=== PATIENT | female | born 1980 | race Two or more races ===

== ENCOUNTER 2021-09-10 08:23 | Outpatient (CLI) | payer BC, SELFPAY ==
--- NOTE | ~2021-09-10 | US_ITS ---
EXAMINATION: US pelvic complete w TV EXAM DATE: 09/10/2021 09:09 INDICATION: N92.0 - Excessive and frequent menstruation with regular. TECHNIQUE: Pelvic transabdominal and transvaginal sonogram was performed. There are multiple graysca le and Doppler images available for interpretation. There is no prior study for comparison. FINDINGS: Uterus measures 11.1 x 6.1 x 5.6 cm, is retroverted and morphologically normal. Endometri al stripe measures 12 mm, within normal limits. There is no free pelvic fluid. Right adnexa: The ovary is not identified. There is no adnexal mass. Left adnexa: The ovary measures 2.3 x 1.8 x 2.3 cm and is morphologically normal. Ovarian vascular fl ow confirmed. IMPRESSION: 1. Unremarkable pelvic ultrasound exam. Reviewed, dictated and finalized at location B.
== END 2021-09-10 08:24 | disposition home or self-care (01) ==
LOC: ANHIMG 08:28
PROVIDERS: PCP Family Medicine; Visit Provider Obstetrics & Gynecology
DX: N92.0 Excessive and frequent menstruation with regular cycle (principal)
CPT/HCPCS: 76830; 76856

== ENCOUNTER 2021-09-16 10:41 | Outpatient (CLI) | payer BC, SELFPAY ==
[2021-09-16 11:42] LABS: Rapid Plasma Reagin Non-Reactive (NonReactive)
[2021-09-16 12:03] LABS: Hepatitis B Surface Antigen Negative (Negative)
[2021-09-16 12:14] LABS: HIV 1/2 Ab P24 Ag Result Negative (Negative)
[2021-09-16 12:20] LABS: Hepatitis C Virus Antibody Negative (Negative)
== END 2021-09-16 10:42 | disposition home or self-care (01) ==
LOC: ANHLAB 10:44
PROVIDERS: PCP Family Medicine; Visit Provider Obstetrics & Gynecology
DX: Z11.3 Encounter for screening for infections with a predominantly sexual mode of transmission (principal)
CPT/HCPCS: 36415; 86592; 86703; 86803; 87340; G0432

== ENCOUNTER 2023-04-21 01:56 | Day surgery (SDC) | payer BC, SELFPAY ==
--- NOTE | 2023-04-15 14:41 | PC.NURSE ---
Report to the Outpatient Waiting Room, entrance under the green pavilion located off [facility], at time _0730__ on date _04/21/23__. Planned Procedure Time: _0930__. Time changes happen often and if your time is changed the preop area will call you the afternoon before. - You and your visitor will be asked to self-screen and do not enter if you have any COVID symptoms. - A mask is optional within the hospital at this time. Patients may have clear liquids (water, carbonated beverages, clear teas, apple juice) until 3 hours prior to surgery with a maximum of 20 ounces. - No food from midnight until time of surgery - Infants may have breast milk until 4 hours before surgery, formula 6 hours prior to surgery. - Children will be allowed to drink immediately following surgery. If applicable, please bring a bottle or sippy cup to assist with drinking. Juice, water, soda, and popsicles are readily available. For infants on formula, please bring formula the day of surgery. Pacifiers are allowed. Take the following medications with a SIP of water the morning of surgery: DO NOT STOP ANY OF YOUR OTHER PRESCRIPTION MEDICATIONS PRIOR TO SURGERY ?EXCEPT THE FOLLOWING Medications to discontinue per physician _vitamins and supplements 3 days prior_ Date to take last dose Please no make-up, nail egyptian, hairspray, perfume, deodorant, or body powder the day of surgery. No jewelry (including any body piercings) or valuables the day of surgery, leave them at home. Please take a shower or bath the night before, or the morning of, surgery with an antibacterial soap. Wear comfortable, loose fitting clothing. Children are encouraged to wear pajamas. - Jewelry must be removed prior to entering the operating room. Rings and piercings that are not removed may be cut off. - The hospital will not accept responsibility for valuables. - Please leave all valuables, including medications, at home the day of surgery. If you are going home after surgery, a licensed entry level truck driver must drive you home. - NO public transportation without another adult if you receive anesthesia. - We recommend that an adult stay with you for 24 hours following discharge. - We also recommend that you do not drive, make important decision, drink alcoholic beverages, or take any drugs that were not prescribed by your health care provider for at least 24 hours after your discharge time. For Pediatric surgeries, we recommend two adults accompany the child home. Follow any additional instructions given to you from your surgeon. If you or anyone in your household have experienced Covid symptoms in the past week, please notify your surgeon or the nurse liaison at the phone number below for possible testing. Telephone instructions given to _Chuyo__and asked if any additional questions and then verbalized understanding. Patient advised to call surgeon office or pre surgery nurse liaison [phone] if any additional questions.
[2023-04-15 14:46] VITALS: BMI 36.1
--- NOTE | 2023-04-20 15:58 | PM.IMHP ---
H&P: HPI History of Present Illness Date/Time: 04/20/23 15:58 Chief Complaint: recurrent tonsillitis chronic tonsillitis Narrative: planned procedure Review of Systems Review of Systems: All systems reviewed & are unremarkable except as noted in HPI and below [facility] Past Medical History Medical History Anxiety Borderline diabetes Elective x3 HSV (herpes simplex virus) infection Migraine Surgical History Surgical History Previous section x1 Tubal ligation status Family History Family History Mother Diabetes mellitus Hypertension Depression Heart disease Anxiety Cerebrovascular accident Sibling Diabetes mellitus Hypertension Anxiety Depression Other History of thyroid disorder Social History Social History (Updated 02/25/23 @ 10:33 by ABBEY Iglesias) Social History: Single Smoking status: Never smoker Second hand tobacco smoke exposure: No Alcohol intake: current Drinks per week: 1 Alcohol use details: Occasionally Substance use: current Substance use type: marijuana Other substance usage details: randomally Lack of Transportation: No Lack of Food: Never True Current Housing: I Have Housing Concerned About Future Housing: No Difficulty Paying Gas/Electric Bills: No Difficulty Paying for Meds: No Currently Unemployed: No Education: High School Diploma/GED Difficulty w/ Childcare or Family Care: No Living arrangements: with family Occupation/Education: occupation Gender identity (if verbalized by the patient): Female Sexual Orientation (if Verbalized by the Patient): Straight or Heterosexual Spiritual care concerns: No Meds Home Medications and Allergies Home Medications Medication Instructions Recorded Confirmed Type No Home Medications 12/13/22 02/25/23 History Allergies Allergy/AdvReac Type Severity Reaction Status Date / Time amoxicillin Allergy Intermediate Hives Verified 04/15/23 14:27 Penicillins Allergy Intermediate Hives Verified 04/15/23 14:27 metronidazole Allergy Unknown Rash, Verified 04/15/23 14:27 swelling fluconazole [From Diflucan] Allergy Rash, skin Verified 04/15/23 14:27 irritation Exam Narrative: chronic appearing tonsils Assessment and Plan Assessment and plan (1) Recurrent tonsillitis: Code(s): J03.91 - Acute recurrent tonsillitis, unspecified Status: Acute Assessment and Plan: ?plan operating room tonsillectomy.? Risks were discussed including bleeding infection 3-5% chance of postoperative bleeding numbness change in taste change in swallow need for further procedures failure to resolve symptoms need for time off work need for time off school need for narcotic use and the inherent risks of using narcotics.? Patient voiced understanding of these risks and agreed. (2) History of strep sore throat: Code(s): Z87.09 - Personal history of other diseases of the respiratory system Status: Acute
[2023-04-21] VITALS (9 sets, daily range): BP systolic 112–150; BP diastolic 72–93; PULSE 62–114; RESP 14–18; TEMP 36.6; O2SAT 95–100
--- NOTE | 2023-04-21 07:20 | WPDHPUPDATE1 ---
History and Physical Update Update Date/Time: 04/21/23 07:20 History and Physical has been reviewed, including an updated exam of the patient. There are NO changes in the patient's condition. Risks, benefits, and alternatives have been discussed and questions answered. Patient agrees to proceed with procedure.
[2023-04-21] MEDS: ACETAMINOPHEN 500 MG TABLET 1000 MG PO (08:10)
[2023-04-21] MEDS: LACTATED RINGERS 1,000 ML 30 ML IV CONT ×2 (08:10→10:49)
[2023-04-21] MEDS: SCOPOLAMINE 1.5 MG PATCH TRANSDERM (08:10)
[2023-04-21 08:40] LABS: Serum Qual hCG Negative
[2023-04-21 08:41] LABS: SPREG INTERNAL CONTROL Positive
--- NOTE | 2023-04-21 08:48 | WPDANESEPPF ---
Anes - Initial Pre Proc Eval Procedure: Operation Date: 04/21/23 09:15 Proposed Procedures p Tonsillectomy - Robin Torres MD Date/Time: 04/21/23 08:48 Surgeon: Robin Torres MD Pre Op Diagnosis: chronic tonsilitis Patient Data Age: 43 Gender: F Height: 1.63 m Weight: 95.45 kg Allergies Allergy/AdvReac Type Severity Reaction Status Date / Time amoxicillin Allergy Intermediate Hives Verified 04/15/23 14:27 Penicillins Allergy Intermediate Hives Verified 04/15/23 14:27 metronidazole Allergy Unknown Rash, Verified 04/15/23 14:27 swelling fluconazole [From Diflucan] Allergy Rash, skin Verified 04/15/23 14:27 irritation Home Medications Medication Instructions Recorded Confirmed Type No Home Medications 12/13/22 02/25/23 History Laboratory Tests 04/21/23 08:23 Serum HCG, Qual Negative Patient hx anesthesia problems: post op nausea/vomiting Family hx anesthesia problems: none Results Review: All pre-operative results and documents have been reviewed as part of the pre-operative evaluation. [facility] Past Medical History Medical History Anxiety Borderline diabetes Elective x3 HSV (herpes simplex virus) infection Migraine Surgical History Surgical History Previous section x1 Tubal ligation status Family History Family History Mother Diabetes mellitus Hypertension Depression Heart disease Anxiety Cerebrovascular accident Sibling Diabetes mellitus Hypertension Anxiety Depression Other History of thyroid disorder Social History Social History Social History: Single Smoking status: Never smoker Second hand tobacco smoke exposure: No Alcohol intake: current Drinks per week: 1 Alcohol use details: Occasionally Substance use: current Substance use type: marijuana Other substance usage details: randomally Lack of Transportation: No Lack of Food: Never True Current Housing: I Have Housing Concerned About Future Housing: No Difficulty Paying Gas/Electric Bills: No Difficulty Paying for Meds: No Currently Unemployed: No Education: High School Diploma/GED Difficulty w/ Childcare or Family Care: No Living arrangements: with family Occupation/Education: occupation Gender identity (if verbalized by the patient): Female Sexual Orientation (if Verbalized by the Patient): Straight or Heterosexual Spiritual care concerns: No Anes - Eval Final PreProcedure Day of Procedure 04/21/23 08:48 Patient weight: obese Heart: regular rate and rhythm Lungs: clear to auscultation Airway: Mallampati scale class II Neurological: alert and oriented Last oral intake: >/= 8 hours ASA classification: III Emergent: no Anesthetic plan: proceed Anesthesia type and monitoring: general ETT and standard monitoring Results Review: All pre-operative results and documents have been reviewed as part of the pre-operative evaluation. Informed Consent: The patient's anesthetic plan and its attendant risks and benefits were discussed with the patient/family/POA. Questions were solicited and answers provided to the satisfaction of the patient/family/POA.
--- NOTE | 2023-04-21 10:06 | W.PM.PROC2 ---
Procedure Note - Detailed Date of Procedure 04/21/23 Pre-op Diagnosis chronic tonsilitis Post-op Diagnosis Same Procedure Performed Tonsillectomy Surgeon Robin Torres MD Anesthesia General Indications see above Findings large scarred in tonsils minimal bleeding Description of Procedure patient identified consent verified in the preoperative holding area. The patient was then brought to the operating room. Time-out was performed. General anesthesia was induced and endotracheal tube was secured the patient's airway. Patient prepped draped position procedure confirmed 2nd time-out performed. McIvor mouth gag inserted revealing tonsils described above. This was a bilateral procedure. They were removed in the extracapsular plane using Bovie electrocautery at a setting of 10. Any bleeding was controlled with Bovie suction electrocautery at a setting of 12. In between tonsils McIvor mouth gag was lowered to allow blood flow to return to the tongue. At the end of the procedure McIvor mouth gag was lowered and reopened 30 seconds later to reveal no further bleeding. McIvor mouth gag was then removed. I performed this bilateral procedure. No complications. Total blood loss about 2 cc. Care the patient was given Anesthesiology. No complications. Patient was taken to PACU. Estimated Blood Loss 2 Drains No Packing No Pathology Yes Complications No immediate complications Condition Stable Disposition PACU [facility] Billing Surgery - Charge Forward: Surgery Billing
[2023-04-21] MEDS: ONDANSETRON INJ 4 MG/2 ML VIAL IV PUSH (11:22)
[2023-04-21] MEDS: fentaNYL CITRATE INJ (*CRX) 100 MCG/2 ML VIAL 25 MCG IV PUSH (11:22)
[2023-04-21] MEDS: oxyCODONE HCL (*CRX) 5 MG TAB IR PO (11:43)
== END 2023-04-21 12:45 | disposition home or self-care (01) ==
PROVIDERS: Anesthesiology; PCP Family Medicine; Visit Provider Otolaryngology
PROC: (CPT 42826; principal; 2023-04-21 09:15)
DX: J35.01 Chronic tonsillitis (principal); F12.90 Cannabis use, unspecified, uncomplicated; E66.9 Obesity, unspecified; Z68.37 Body mass index [BMI] 37.0-37.9, adult; Z87.09 Personal history of other diseases of the respiratory system
CPT/HCPCS: 42826; 36415; 84703; 88302; A9270; J0330; J1100; J2250; J2270; J2405; J2704; J3010; J7120

== ENCOUNTER 2024-07-26 10:38 | Outpatient (CLI) | payer BC, SELFPAY ==
--- NOTE | ~2024-07-26 | XR_ITS ---
3 VIEWS LUMBAR SPINE Ordering provider: Ayla Horta MD History: . R20.0 - Anesthesia of skin . Comparison: None. FINDINGS: VERTEBRAL BODIES: No visible fracture or subluxation. DISK SPACES: Normal. SOFT TISSUES: Normal. IMPRESSION: No acute osseous abnormality lumbar spine. Reviewed, dictated and finalized at location A.
== END 2024-07-26 10:39 | disposition home or self-care (01) ==
PROVIDERS: PCP Family Medicine; Visit Provider Family Medicine
DX: R20.0 Anesthesia of skin (principal)
CPT/HCPCS: 72100

== ENCOUNTER 2024-09-28 14:11 | Outpatient (CLI) | payer BC, SELFPAY ==
[2024-09-28 14:47] LABS: Alanine Aminotransferase 147 U/L (6-35); Aspartate Amino Transferase 136 U/L (14-36)
[2024-09-30 02:54] LABS: FSH 89.4 mIU/mL
== END 2024-09-28 14:12 | disposition home or self-care (01) ==
LOC: ANHLAB 14:13
PROVIDERS: Student in an Organized Health Care Education/Training Program; PCP Family Medicine; Visit Provider Nurse Practitioner Obstetrics & Gynecology
DX: R79.89 Other specified abnormal findings of blood chemistry (principal); N91.2 Amenorrhea, unspecified; R23.2 Flushing
CPT/HCPCS: 36415; 82306; 82670; 83001; 84443; 84450; 84460

== ENCOUNTER 2024-10-06 15:57 | Outpatient (CLI) | payer BC, SELFPAY ==
--- NOTE | ~2024-10-06 | US_ITS ---
EXAMINATION: US abdomen limited DATE: 10/06/2024 16:28 INDICATION: Other specified abnormal findings of blood chemistry. TECHNIQUE: Multiple grayscale and Doppler ultrasound images of the abdomen were obtained. COMPARISON: None FINDINGS: The pancreatic head and body are normal in appearance. The pancreatic tail is not visualized. Liver has normal contour, with a smooth surface. There is increased parenchymal echogenicity and coarsened echotexture consistent with diffuse hepatic steatosis. No liver lesion identified. No intrahepatic b iliary duct dilation suspected. Portal venous flow was seen in the hepatopetal, normal direction and has normal Doppler waveform. The gallbladder is not distended which limits evaluation. There is a reg ion of Gerdy shadowing seen posteriorly from the anterior wall of the gallbladder which could represe nt pneumobilia however this does not appear to change position significantly when comparing the imagi ng the supine and left lateral decubitus position which suggests possibility of osteonecrosis with ei ther in the gallbladder wall or gallbladder sludge. No hypoechoic shadowing to suggest cholelithiasis . Differential would also include gas within a loop of bowel within the gallbladder fossa with nonvis ualized potentially decompressed gallbladder. The common bile duct measures 3 mm, which is normal. So nographic Wise sign was reported as negative by the end finder forming department. The visualized proximal to mid inf erior vena cava and aorta are normal. Visualized portion of the right kidney demonstrates normal cont our and axis tube with no hydronephrosis. IMPRESSION: 1. Indeterminate dirty acoustic shadowing arising from a fluid-filled structure at the gallbladder fo ssa. Differential would include pneumobilia, adenomyomatosis, atypically shadowing gallstones, choles terol crystals within gallbladder sludge or nonvisualized gallbladder with fluid and gas-filled loop of bowel at the gallbladder fossa. Would consider further evaluation with either MRI/MRCP or repeat u ltrasound with proper fasting. 2. Diffuse hepatic steatosis. Reviewed, dictated and finalized at location B. NEERING FACULTY MEMBER IMPRESSION: 1. Indeterminate dirty acoustic shadowing arising from a fluid-filled structure at the gallbladder fossa. Differential would include pneumobilia, adenomyomato sis, atypically shadowing gallstones, cholesterol crystals within gallbladder s ludge or nonvisualized gallbladder with fluid and gas-filled loop of bowel at t he gallbladder fossa. Would consider further evaluation with either MRI/MRCP or repeat ultrasound with proper fasting. 2. Diffuse hepatic steatosis.
== END 2024-10-06 15:58 | disposition home or self-care (01) ==
LOC: ANHIMG 15:58
PROVIDERS: PCP Family Medicine; Visit Provider Student in an Organized Health Care Education/Training Program
DX: R79.89 Other specified abnormal findings of blood chemistry (principal)
CPT/HCPCS: 76705

== ENCOUNTER 2025-03-07 08:12 | Outpatient (CLI) | payer BC, SELFPAY ==
--- NOTE | ~2025-03-07 | US_ITS ---
Pelvic ultrasound. Clinical History: Pelvic pain Technique: Realtime transabdominal and transvaginal scanning of the pelvis was performed. Color flow Doppler and Doppler spectral analysis were performed. Findings: The uterus is anteverted. The endometrial stripe has a thickness of 9 mm. No focal mass is identified. The right ovary measures 2.3 x 1.6 x 2.3 cm. No significant right ovarian or adnexal mass is seen. The left ovary measures 2.0 x 1.1 x 2.2 cm. No significant left ovarian or adnexal mass is seen. There is no evidence of free fluid in the cul de sac. Impression: Unremarkable pelvic ultrasound. Reviewed, dictated and finalized at location . Impression: Unremarkable pelvic ultrasound.
--- NOTE | ~2025-03-07 | US_ITS ---
US abdomen limited INDICATION: Fatty liver. PROCEDURE: Realtime right upper abdominal ultrasound. COMPARISON: Ultrasound dated 10/06/2024 FINDINGS: The pancreas is normal without focal mass or pancreatic ductal dilation. Liver echotexture is diffusely increased, consistent with fatty infiltration. There is an ill-defined hypoechoic mass of the liver measuring 4 x 3.7 x 3.6 cm with marginal vascularity. There is normal directional flow in the portal vein. There are gallstones. No gallbladder wall thickening. Common bile duct measures 4 mm. No sonographi c Wise's sign. IMPRESSION: 1: Fatty infiltrate trace of the liver. 4 cm hypoechoic mass with marginal vascularity. Recommend cor relation with CT or MRI without and with contrast for further characterization. 2: Gallstones. Reviewed, dictated and finalized at location A. IMPRESSION: 1: Fatty infiltrate trace of the liver. 4 cm hypoechoic mass with marginal vasc ularity. Recommend correlation with CT or MRI without and with contrast for fur ther characterization. 2: Gallstones.
== END 2025-03-07 08:13 | disposition home or self-care (01) ==
PROVIDERS: PCP Nurse Practitioner Obstetrics & Gynecology; Visit Provider Student in an Organized Health Care Education/Training Program
DX: R10.2 Pelvic and perineal pain (principal); R93.2 Abnormal findings on diagnostic imaging of liver and biliary tract; K76.0 Fatty (change of) liver, not elsewhere classified; K80.20 Calculus of gallbladder without cholecystitis without obstruction
CPT/HCPCS: 76705; 76830; 76856

== ENCOUNTER 2025-04-05 00:54 | Day surgery (SDC) | payer BC, SELFPAY ==
[2025-03-28 09:19] VITALS: BMI 38.2
--- NOTE | 2025-03-28 09:20 | PC.NURSE ---
Report to the Outpatient Waiting Room, entrance under the green pavilion located off [facility], at time _0800_ on date _[id number]_. Planned Procedure Time: _1000_.? Time changes happen often and if your time is changed the preop area will call you the afternoon before. - You and your visitor will be asked to self-screen and do not enter if you have any COVID symptoms. Please call surgeon if you need to reschedule. - A mask is optional within the hospital at this time. Patients may have clear liquids (water, carbonated beverages, clear teas, apple juice) until 3 hours prior to surgery with a maximum of 20 ounces. - No food from midnight until time of surgery and no smoking, or chewing tobacco (or any form of nicotine). No chewing gum, candy or mints. Take only the following medications with a SIP of water on the morning of surgery: __Flonase DO NOT STOP ANY OF YOUR OTHER PRESCRIPTION MEDICATIONS PRIOR TO SURGERY EXCEPT THE FOLLOWING Hold all vitamins and supplements for 3 days per anesthesiologist. Medications to discontinue per physician Date to take last vhyx__[id number]____ Please no make-up, nail english, hairspray, perfume, deodorant, or body powder the day of surgery.? No jewelry (including any body piercings) or valuables the day of surgery, leave them at home.? Please take a shower or bath the night before, or the morning of, surgery with an antibacterial soap.? Wear comfortable, loose fitting clothing.? - Jewelry must be removed prior to entering the operating room.? Rings and piercings that are not removed may be cut off. - The hospital will not accept responsibility for valuables.? - Please leave all valuables, including medications, at home the day of surgery. If you are going home after surgery, a licensed dairy truck driver must drive you home.? - NO public transportation without another adult if you receive anesthesia. - We recommend that an adult stay with you for 24 hours following discharge. - We also recommend that you do not drive, make important decision, drink alcoholic beverages, or take any drugs that were not prescribed by your health care provider for at least 24 hours after your discharge time. Follow any additional instructions given to you from your surgeon. Telephone instructions given to __Radha___and asked if any additional questions and then verbalized understanding. Patient advised to call surgeon office or pre surgery nurse liaison [phone] if any additional questions.
[2025-04-05 08:00] VITALS: BP 136/84; PULSE 73; RESP 18; TEMP 36.8; O2SAT 96
[2025-04-05] MEDS: LACTATED RINGERS 1,000 ML 30 ML IV CONT (08:25)
[2025-04-05] MEDS: ACETAMINOPHEN 500 MG TABLET 1000 MG PO (08:49)
[2025-04-05 09:20] VITALS: BMI 38.5
--- NOTE | 2025-04-05 10:05 | P.PNAN_ITS ---
Anes - Initial Pre Proc Eval Procedure: Operation Date: 04/05/25 10:00 Proposed Procedures p Hysteroscopy Dilation and Curettage with Possible Removal of Any Endometrial Lesions if Necessary - Beny Perkins MD Date/Time: 04/05/25 10:05 Surgeon: Beny Perkins MD Pre Op Diagnosis: abnormal uterine bleeding Patient Data Age: 45 Gender: F Height: 1.63 m Weight: 101.8 kg Last Vital Signs Temp 36.8 C 04/05/25 08:00 Pulse 73 04/05/25 08:00 Resp 18 04/05/25 08:00 BP 136/84 04/05/25 08:00 Pulse Ox 96 04/05/25 08:00 O2 Del Method Room Air 04/05/25 08:00 Allergies Allergy/AdvReac Type Severity Reaction Status Date / Time amoxicillin Allergy Intermediate Hives Verified 03/28/25 13:09 Penicillins Allergy Intermediate Hives Verified 03/28/25 13:09 metronidazole Allergy Unknown Rash, Verified 03/28/25 13:09 swelling fluconazole (From Diflucan) Allergy Rash, skin Verified 03/28/25 13:09 irritation Home Medications ?Medication ?Instructions ?Recorded ?Confirmed ?Type multivitamin (Daily Multi-Vitamin 1 tablet PO DAILY 09/28/24 04/05/25 History tablet) Bacillus coagulans 10 billion cell 10 cell PO DAILY 03/01/25 04/05/25 History capsule,delayed release (Probiotic (B. coagulans)) cyanocobalamin (vitamin B-12) 1,000 mcg PO DAILY 03/01/25 04/05/25 History 1,000 mcg capsule fluticasone propionate 50 See Rx Instructions .Route 03/21/25 04/05/25 Rx mcg/actuation nasal .COMPLEX #16 mL spray,suspension terconazole 0.8 % vaginal cream 1 appful vaginal QHS 3 days #20 04/04/25 Rx grams Patient hx anesthesia problems: none Family hx anesthesia problems: none Results Review: All pre-operative results and documents have been reviewed as part of the pre- operative evaluation. [facility] Past Medical History Medical History HSV (herpes simplex virus) infection Elective x3 Borderline diabetes Migraine Anxiety Surgical History Surgical History Previous section x1 Tubal ligation status Family History Family History Mother Diabetes mellitus Hypertension Depression Heart disease Anxiety Cerebrovascular accident Sibling Diabetes mellitus Hypertension Anxiety Depression Other History of thyroid disorder Social History Social History Social History: Single Smoking status: Never smoker Second hand tobacco smoke exposure: No Alcohol intake: current Alcohol use details: Occasionally Substance use: current Substance use type: marijuana Last use: Pt smokes marijuana occasionally Lack of Transportation: No Lack of Food: Never True Current Housing: I Have Housing Concerned About Future Housing: No Difficulty Paying Gas/Electric Bills: No Difficulty Paying for Meds: No Currently Unemployed: No Education: High School Diploma/GED Difficulty w/ Childcare or Family Care: No Living arrangements: with family Occupation/Education: occupation Gender identity (if verbalized by the patient): Female Sexual Orientation (if Verbalized by the Patient): Straight or Heterosexual Spiritual care concerns: No Anes - Eval Final PreProcedure Day of Procedure 04/05/25 10:05 Patient weight: obese Heart: regular rate and rhythm Lungs: clear to auscultation Airway: Mallampati scale class II Neurological: alert and oriented Last oral intake: >/= 8 hours ASA classification: III Emergent: no Anesthetic plan: proceed Anesthesia type and monitoring: general GIVS and standard monitoring Results Review: All pre-operative results and documents have been reviewed as part of the pre- operative evaluation. Informed Consent: The patient's anesthetic plan and its attendant risks and benefits were discussed with the patient/family/POA. Questions were solicited and answers provided to the satisfaction of the patient/family/POA.
--- NOTE | 2025-04-05 10:31 | WPDHPUPDATE1 ---
History and Physical Update Update Date/Time: 04/05/25 10:31 History and Physical has been reviewed, including an updated exam of the patient. There are NO changes in the patient's condition. Risks, benefits, and alternatives have been discussed and questions answered. Patient agrees to proceed with procedure.
[2025-04-05] MEDS: ceFAZolin 2 GM/D5W 50 ML 2 GM/50 ML BAG IVPB (10:39)
[2025-04-05] MEDS: LIDOCAINE 1% LOCAL INJ 10 ML VIAL INFILTRATE (10:56)
[2025-04-05 11:03] LABS: BEDSIDEPREGUCG Negative (Negative)
[2025-04-05 11:09] VITALS: BP 125/76; PULSE 85; RESP 20; O2SAT 96
[2025-04-05 11:38] VITALS: BP 128/76; PULSE 55
[2025-04-05 12:08] VITALS: BP 127/82; PULSE 61
--- NOTE | 2025-04-05 12:44 | P.OP_ITS ---
Procedure Note - Detailed Date of Procedure 04/05/25 Pre-op Diagnosis abnormal uterine bleeding, endometrial polyp Post-op Diagnosis Same Procedure Performed Hysteroscopy with dilation and curettage and removal of large endometrial polypo id lesion Surgeon Beny Perkins MD Anesthesia MAC and Local Indications Endometrial polyp on endometrial biopsy which was performed due to menorrhagia. Findings Uterus sound to 9 cm, large polyp from the upper posterior fundus, removed, proliferative tissue. Description of Procedure After informed consent was obtained patient was taken to the operating room and adequate IV sedation was administered. Attention was turned to the vagina. Speculum was inserted. Single-tooth tenaculum placed on the anterior lip of the cervix. 10ccc of 1% lidocaine was injected at cervicovaginal interface at 2,5,8, and 10 position. The uterus was sounded to 9 cm. The cervix was dilated to an 6 Lawrence dilator. The hysteroscope was inserted into the cavity. The findings were consistent with large polyp. The Aveta was used and the polyp was removed. Hysteroscope removed. A curettage was performed. The single-tooth tenaculum was removed hemostasis was noted at the tenaculum site. Sponge count correct. The patient taken to recovery in stable condition. Estimated Blood Loss 5 Drains No Packing No Pathology Yes (endometrial shavings and curettings) Complications No immediate complications Condition Stable Disposition Same day [facility] Billing Surgery - Charge Forward: Surgery Billing
== END 2025-04-05 12:23 | disposition home or self-care (01) ==
PROVIDERS: PCP Family Medicine; Visit Provider Obstetrics & Gynecology
PROC: 0U5B8ZZ Destruction of Endometrium, Via Natural or Artificial Opening Endoscopic (ICD-10-PCS; CPT 58563; principal; 2025-04-05 10:00)
DX: N84.0 Polyp of corpus uteri (principal); F41.9 Anxiety disorder, unspecified; R73.03 Prediabetes; F12.90 Cannabis use, unspecified, uncomplicated; E66.9 Obesity, unspecified; Z68.38 Body mass index [BMI] 38.0-38.9, adult; Z98.890 Other specified postprocedural states; Z98.51 Tubal ligation status; Z82.49 Family history of ischemic heart disease and other diseases of the circulatory system
CPT/HCPCS: 58558; 88305; A9270; J0690; J2003; J2250; J2704; J3010; J7120